=== PATIENT | male | born 1955 | race Caucasian/White ===

== ENCOUNTER 2021-08-17 07:23 | Day surgery (SDC) | payer MEDICARE, MEDICAID ==
[2021-08-15 14:36] LABS: CLARITY,URINE CLEAR (Clear); COLOR,URINE STRAW (Yellow); UA COLLECTION TYPE CLN CATCH MIDSTREAM
[2021-08-15 14:37] LABS: BASOPHILS # (AUTO) 0.1 X10'3 (0-0.2); EOSINOPHILS # (AUTO) 0.4 X10'3 (0-0.9); EOSINOPHILS % (AUTO) 5.7 % (0-6); LYMPHOCYTES # (AUTO) 1.5 X10'3 (1.1-4.8); LYMPHOCYTES % (AUTO) 20.4 % (21-51); MEAN CORPUSCULAR HEMOGLOBIN 32.3 PG (27.0-31.0); MEAN CORPUSCULAR HGB CONC 35.4 g/dL (33.0-36.5); MEAN CORPUSCULAR VOLUME 91.1 FL (78-98); MEAN PLATELET VOLUME 7.9 FL (7.4-10.4); MONOCYTES # (AUTO) 0.8 X10'3 (0-0.9); MONOCYTES % (AUTO) 10.8 % (2-12); NEUTROPHILS # (AUTO) 4.5 X10'3 (1.8-7.7); NEUTROPHILS % (AUTO) 62.1 % (42-75); PRE OP HEMATOCRIT 47.6 % (42.0-52.0); PRE OP HEMOGLOBIN 16.9 g/dL (14.0-17.9); PRE OP PLATELET COUNT 234 X10'3 (140-440); RED BLOOD COUNT 5.23 X10'6 (4.70-6.10); RED CELL DISTRIBUTION WIDTH 17.3 % (11.5-14.5)
[2021-08-15 14:38] LABS: GLUCOSE, URINE NEGATIVE (Neg); KETONES,URINE NEGATIVE (Neg); LEUKOCYTE ESTERASE ,URINE NEGATIVE (Neg); NITRITES, URINE NEGATIVE (Neg); OCCULT BLOOD,URINE LARGE (Neg); PH,URINE 6.5 (4.8-8.0); PROTEIN,URINE NEGATIVE (Neg); UROBILINOGEN,URINE 0.2 E.U/dL (0.2-1.0)
[2021-08-15 14:41] LABS: MUCUS STRANDS FEW /LPF (Neg); TRANSITIONAL EPI CELLS,URINE FEW /HPF
[2021-08-15 14:42] LABS: SQUAMOUS EPITHELIAL CELL,UR FEW /LPF (FEW); WBC,URINE NONE SEEN /HPF (0-4)
[2021-08-15 14:43] LABS: BACTERIA,URINE NONE SEEN /HPF (Neg); RBC,URINE 50-100 /HPF (0-2)
[2021-08-15 14:49] LABS: ALBUMIN 3.4 G/DL (3.4-5.0); ALBUMIN/GLOBULIN RATIO 0.8 (1.1-1.5); ALKALINE PHOSPHATASE 77 IU/L (46-116); BLOOD UREA NITROGEN 16 MG/DL (7-18); BUN/CREATININE RATIO 15.4 (5.4-32.0); CALCIUM 9.5 MG/DL (8.5-10.1); CHLORIDE 102 MMOL/L (99-107); CREATININE 1.04 MG/DL (0.60-1.10); PRE OP ALT 22 U/L (30-65); PRE OP ANION GAP 12 (8-16); PRE OP AST 17 U/L (10-37); PRE OP BILIRUB, TOTAL 0.5 MG/DL (0.0-1.0); PRE OP GLUCOSE 87 MG/DL (70-104); PRE OP POTASSIUM 4.1 MMOL/L (3.4-5.1); PRE OP SODIUM 136 MMOL/L (135-145); TOTAL CARBON DIOXIDE 22.1 MMOL/L (24-32); TOTAL PROTEIN 7.5 G/DL (6.4-8.2); eGFR 71 ML/MIN
[2021-08-17] VITALS (33 sets, daily range): BP systolic 85–124; BP diastolic 55–82
[~2021-08-17] VITALS: Ht 170.2 cm; Wt 54.6 kg
[~2021-08-17 07:23] MED LIST: ALBU18HF2 INH; APIX5TAB3 PO; ASPI-1265 PO; FLO0.4C; FLUT1BLS16 INH; GABA-530 PO; MELO-102 PO
[2021-08-17] MEDS ORDERED: ringers solution, lacted 1,000 ML IV SCH ×3 (07:42→11:00)
[2021-08-17] MEDS ORDERED: famotidine 20mg tablet PO ONE (07:42)
[2021-08-17] MEDS ORDERED: cefazolin/dext.iso 2gm/100ml IV ONE (07:42)
[2021-08-17] MEDS ORDERED: ondansetron/PF 4mg/2ml inj IV PRN ×2 (08:35→11:00)
[2021-08-17] MEDS ORDERED: labetalol 20mg/4ml (5mg/ml) syringe IV PRN ×2 (08:35→11:00)
[2021-08-17] MEDS ORDERED: morphine 4 MG/ML inj SYRINge IV PRN ×2 (08:35→11:00)
[2021-08-17] MEDS ORDERED: morphine 2 MG/ML inj. syringe IV PRN ×2 (08:35→11:00)
[2021-08-17] MEDS ORDERED: hydrALAZINE 20mg/ml inj. IV PRN ×2 (08:35→11:00)
[2021-08-17] MEDS ORDERED: fentaNYL/PF 50MCG/1 ML 2ML syringe IV PRN ×2 (08:35)
[2021-08-17 09:03] LABS: PRE OP PROTIME 10.3 SECONDS (9.0-12.0)
[2021-08-17] MEDS ORDERED: BUPIVAcaine/PF 2.5mg/ml (0.25%) 10ml vial ONE ×2 (10:34→10:46)
[2021-08-17] MEDS ORDERED: BUPIVACAINE liposomal/PF 13.3 MG/ML vial IM ONE (10:46)
[2021-08-17] MEDS ORDERED: midazolam 1 mg/ML 2ml injection ONE (10:55)
[2021-08-17] MEDS ORDERED: acetaminophen 1,000mg/100ml IV 100 ML IV PRN (11:00)
[2021-08-17] MEDS ORDERED: meperidine/PF 25mg/ml syringe IV PRN ×2 (11:00)
[2021-08-17] MEDS ORDERED: proCHLORperazine 10 MG/2 ml inj IV PRN (11:00)
[2021-08-17] MEDS ORDERED: LIDOcaine 1%/PF 5ML 10 MG/ML VIAL ONE (11:02)
[2021-08-17] MEDS ORDERED: sevoflurane 250ml liquid IH ONE (11:02)
[2021-08-17] MEDS ORDERED: propofol 10mg/ml 20ml vial IV ONE (11:02)
[2021-08-17] MEDS ORDERED: ePHEDrine 50MG/ML INJ. ONE (11:46)
[2021-08-17] MEDS ORDERED: 0.9 % SODIUM CHLORIDE 10 ML VIAL ONE (11:46)
[2021-08-17] MEDS ORDERED: rocuronium 10mg/ml inj IV ONE (11:46)
[2021-08-17] MEDS ORDERED: fentaNYL /PF 50mcg/ml 5ml ampule ONE (11:46)
[2021-08-17] MEDS ORDERED: ondansetron/PF 4mg/2ml inj ONE (11:48)
[2021-08-17] MEDS ORDERED: dexamethasone sod phosphate 4mg/ml inj. ONE (11:48)
[2021-08-17] MEDS ORDERED: phenylephrine 10mg/ml inj. ONE (12:05)
[2021-08-17] MEDS ORDERED: albumin (Human) 5% 250ml 250 ML IV ONE (12:23)
[2021-08-17] MEDS ORDERED: neostigmine methylsulfate 1 MG/ML 10ml vial ONE (12:55)
[2021-08-17] MEDS ORDERED: glycopyrrolate 0.2mg/ml inj ONE (12:55)
--- NOTE | 2021-08-17 13:04 | NUR ---
Received from OR via , accompanied by Anesthesiologist DR DRISCOLL and report given by Anesthesiolgist. OPT PRESENTS WTIH 18G RIGHT HAND, ABD DRESSING SRY AN INTACT, VSS. Addendum: 08/17/21 at 1311 by Dorys Cline RN, RN Amended: Links added.
[2021-08-17] MEDS: meperidine/PF 25mg/ml syringe IV PRN ×2 (13:44→13:50)
[2021-08-17] MEDS ORDERED: ipratropium/albuterol 3ml nebule NEB PRN (15:30)
--- NOTE | 2021-08-17 17:41 | NUR ---
PT UNABLE TO VOID AT THIS TIME, DR MORAN NOTIFIED. Addendum: 08/17/21 at 1742 by Dorys Cline RN, RN Amended: Links added.
--- NOTE | 2021-08-17 17:41 | NUR ---
PT B;ADDER SCANNED WITH 138 MLS IN BLADDER Addendum: 08/17/21 at 1742 by Dorys Cline RN, RN Amended: Links added.
== END 2021-08-17 18:14 | disposition home or self-care (01) ==
LOC: PAS 07:23
PROVIDERS: ATTEND Surgery
DX: K43.9 Ventral hernia without obstruction or gangrene (principal); J44.9 Chronic obstructive pulmonary disease, unspecified; M19.90 Unspecified osteoarthritis, unspecified site; N40.0 Benign prostatic hyperplasia without lower urinary tract symptoms; F17.210 Nicotine dependence, cigarettes, uncomplicated; Z87.01 Personal history of pneumonia (recurrent); Z20.822 Contact with and (suspected) exposure to COVID-19; Z98.890 Other specified postprocedural states; Z90.5 Acquired absence of kidney; Z79.82 Long term (current) use of aspirin; Z79.899 Other long term (current) drug therapy; Z86.711 Personal history of pulmonary embolism; Z79.01 Long term (current) use of anticoagulants
CPT/HCPCS: 36415; 49653; 64488; 71046; 80053; 81001; 82948; 85025; 85610; 85730; 87635; 93005; 94640; 94760; C1781; C9290; C9803; J1100; J2175; J2250; J2370; J2405; J2704; J2710; J3010; J3490; J7120; P9045; Z7506; Z7508; Z7512; A4215; A4618; A7000